=== PATIENT | male | born 1945 | race Caucasian/White ===

== ENCOUNTER → 2020-10-17 | Outpatient (CLI) | payer MEDICARE, BC ==
--- NOTE | 2020-10-17 18:22 | KCIC ---
EXAM: MRI RIGHT SHOULDER WITHOUT CONTRAST INDICATION: Right shoulder pain COMPARISON: None TECHNIQUE: Multiplanar, multisequence imaging of the right shoulder without contrast. FINDINGS: ROTATOR CUFF: Large, complete or near-complete full-thickness tear of the supraspinatus tendon with f ibers retracted to the mid humeral head. This measures at least 2.2 x 2.2 cm. There may be some intac t posterior supraspinatus fibers. There is partial-thickness articular sided tearing of the infraspin atus tendon. Subscapularis tendon and teres minor tendons are intact. LABRUM: No discrete tear.. BICEPS TENDON: Mild intra-articular biceps tendinopathy. ACROMIOCLAVICULAR JOINT: Mild degenerative joint disease with type II acromion. There is a subacromia l enthesophyte. GLENOHUMERAL JOINT: Cartilage is grossly intact. Marrow signal is normal. Alignment is normal. OTHER: No significant joint effusion. There is fluid in the subacromial-subdeltoid bursa. IMPRESSION: 1. Complete or near-complete full-thickness tear of the supraspinatus tendon. Fibers are retracted to the mid humeral head. There is partial-thickness articular sided tearing of the infraspinatus tendon . 2. Mild intra-articular biceps tendinopathy. 3. Mild acromioclavicular degenerative joint disease. Electronically signed by: Mine Spears MD (10/17/2020 6:19 PM) [id number]
== END ==
LOC: KCIC MRI 10:40
PROVIDERS: ATTEND Physician Assistant Medical
DX: M75.121 Complete rotator cuff tear or rupture of right shoulder, not specified as traumatic (principal); M19.011 Primary osteoarthritis, right shoulder; M75.21 Bicipital tendinitis, right shoulder; M25.811 Other specified joint disorders, right shoulder
CPT/HCPCS: 73221